=== PATIENT | male | born 1995 | race African-American/Black ===

== ENCOUNTER 2019-02-09 20:22 | Emergency (ER) | payer SELFPAY ==
[~2019-02-09] VITALS: Ht 188 cm; Wt 89.0 kg
[2019-02-09 20:42] VITALS: BP 134/80
== END 2019-02-09 23:31 | disposition home or self-care (01) ==
LOC: ER 20:22
DX: H10.33 Unspecified acute conjunctivitis, bilateral (principal)
CPT/HCPCS: 99283